=== PATIENT | female | born 1995 | race Caucasian/White ===

== ENCOUNTER 2020-04-19 22:00 | Emergency (ER) | payer SELFPAY ==
[2020-04-19] MEDS ORDERED: Sodium Chloride 0.9% 1,000 ML ONE (22:33)
[2020-04-19] MEDS ORDERED: Morphine 4 MG/ML VIAL ONE (22:33)
[2020-04-19] MEDS ORDERED: Ondansetron PF 4 MG/2 ML Vial ONE (22:43)
--- NOTE | 2020-04-19 22:54 | RAD ---
XR Foot Rt 3 View STANDARD HISTORY: Snake bite, right foot pain FINDINGS: No fracture or dislocation is identified. No radiopaque foreign bodies identified. There is soft tiss ue swelling at the level of the fifth MTP joint.
[2020-04-19 22:58] LABS: PTT 29.2 sec (22.9-36.1); Prothrombin Time 12.8 sec (12.0-14.7)
[2020-04-19 23:06] LABS: ALT (SGPT) 24 U/L (8-55); AST (SGOT) 21 U/L (5-34); Albumin 4.6 g/dL (3.5-5.0); Alkaline Phosphatase 95 U/L (40-110); Anion Gap 18 mmol/L (10-20); BUN (Urea Nitrogen) 9 mg/dL (7.0-18.7); Bilirubin, Total 0.3 mg/dL (0.2-1.2); CK (CPK) 179 U/L (29-168); Calc. Creatinine Clearance 0 mL/min (70-130); Calcium 9.3 mg/dL (7.8-10.44); Carbon Dioxide 23 mmol/L (22-29); Chloride 103 mmol/L (98-107); Estimated GFR-MDRD 80; Globulin 2.9 g/dL (2.4-3.5); Glucose 92 mg/dL (70-105); Potassium 3.8 mmol/L (3.5-5.1); Protein, Total 7.5 g/dL (6.0-8.3); Sodium 140 mmol/L (136-145)
[2020-04-19 23:09] LABS: #Basophils 0.1 thou/uL (0.0-0.2); #Eosinphils 0.1 thou/uL (0.0-0.7); #Lymphocytes 2.4 thou/uL (1.20-3.40); #Monocytes 0.7 thou/uL (0.11-0.59); #Neutrophils 6.2 thou/uL (1.40-6.50); %Basophils 0.9 % (0.0-1.0); %Eosinophils 0.6 % (0.0-10.0); %Lymphocytes 25.4 % (21.0-51.0); %Monocytes 6.9 % (0.0-10.0); %Neutrophils 66.2 % (42.0-75.0); BHCG - Serum Negative (NEGATIVE); Mean Corpuscular HGB CONC 31.9 g/dL (32.0-36.0); Mean Corpuscular Hemoglobin 28.4 pg (27.0-31.0); Mean Platelet Volume 11.5 fL (7.4-10.4); Platelet Count 246 thou/uL (130-400); Pregs Control Background? CLEAR/WHITE (CLR/WHITE); Pregs Control Bar Appear? YES (CONTROL BAR); RBC Distribution Width 11.9 % (11.5-14.5); Red Blood Cell (RBC) Count 4.93 mill/uL (4.20-5.40); White Blood Cell (WBC) Count 9.4 thou/uL (4.8-10.8)
[2020-04-20 00:15] LABS: Bilirubin Negative (Negative); Blood, Urine Negative (Negative); Clarity Clear (Clear); Glucose, Urine (Dipstick) Negative (Negative); Leukocyte Negative (Negative); Nitrite Negative (Negative); Protein, Urine (Dipstick) Negative (Neg-Trace); Urobilinogen 0.2 mg/dL (Less than 2)
[2020-04-20] MEDS ORDERED: Crotalidae Polyvalent Antivenin 1 GM VIAL ONE (04:10)
[2020-04-20] MEDS ORDERED: Adacel (T-DAP) 0.5 ML SYRINGE ONE (04:13)
[2020-04-20] MEDS ORDERED: Sodium Chloride 0.9% 250 ML 250 ML ONE (04:13)
== END 2020-04-20 05:59 | disposition short-term general hospital (02) ==
LOC: MADERS 22:00
DX: T63.061A Toxic effect of venom of other North and South American snake, accidental (unintentional), initial encounter (principal); F17.210 Nicotine dependence, cigarettes, uncomplicated; R60.0 Localized edema
CPT/HCPCS: 80053; 81003; 82550; 84703; 85025; 85384; 85610; 85730; 86850; 86900; 86901; 90471; 90715; 96361; 96365; 96375; J0840; J2270; J2405; J7050